=== PATIENT | female | born 1995 | race African-American/Black ===

== ENCOUNTER 2017-03-19 21:20 | Emergency (ER) | payer OTHER ==
[~2017-03-19] VITALS: Ht 152.4 cm; Wt 50.0 kg
[~2017-03-19 21:20] MED LIST: FOLIC ACID; KEPPRA
[2017-03-20 01:55] VITALS: BP 115/71
== END 2017-03-20 02:03 | disposition home or self-care (01) ==
LOC: EMS 21:22
DX: F32.9 Major depressive disorder, single episode, unspecified (principal); R46.89 Other symptoms and signs involving appearance and behavior; F15.10 Other stimulant abuse, uncomplicated; F17.210 Nicotine dependence, cigarettes, uncomplicated; Z88.1 Allergy status to other antibiotic agents
CPT/HCPCS: 99284; 99406

== ENCOUNTER 2018-12-07 19:17 | Emergency (ER) | payer OTHER ==
[~2018-12-07] VITALS: Ht 152.4 cm; Wt 50.9 kg
[2018-12-07 19:32] VITALS: BP 123/72
[2018-12-07 20:26] LABS: BASOPHILS % (AUTO) 0.7 % (0.0-2.0); EOSINOPHILS % (AUTO) 0.9 % (1.0-6.0); HEMATOCRIT 37.6 % (36-46); HEMOGLOBIN 12.7 g/dL (12.0-16.0); LYMPHOCYTES % (AUTO) 35.6 % (22.0-44.0); MEAN CORPUSCULAR HEMOGLOBIN 28.9 pg (26.0-34.0); MEAN CORPUSCULAR HGB CONC 33.8 G/dL (31.0-37.0); MEAN CORPUSCULAR VOLUME 86 fL (80-100); MONOCYTES # (AUTO) 0.5 K/uL (0.1-1.0); MONOCYTES % (AUTO) 8.7 % (2.0-9.0); NEUTROPHILS # (AUTO) 3.1 K/uL (1.8-7.7); NEUTROPHILS % (AUTO) 54.1 % (40.0-70.0); PLATELET COUNT (AUTO) 279 K/uL (150-450); RED BLOOD CELL COUNT(AUTO) 4.39 MIL/uL (4.00-5.20); RED CELL DISTRIBUTION WIDTH 12.6 % (11.5-14.5)
== END 2018-12-07 21:40 | disposition home or self-care (01) ==
LOC: EMS 19:18
DX: N93.9 Abnormal uterine and vaginal bleeding, unspecified (principal); F15.10 Other stimulant abuse, uncomplicated; F17.210 Nicotine dependence, cigarettes, uncomplicated; Z88.0 Allergy status to penicillin
CPT/HCPCS: 99406

== ENCOUNTER 2020-01-14 03:23 | Emergency (ER) | payer OTHER ==
[~2020-01-14] VITALS: Ht 152.4 cm; Wt 50.0 kg
[2020-01-14] MEDS ORDERED: LORazepam 2 MG/ML VIAL IVP ONE (04:15)
[2020-01-14] MEDS ORDERED: SODIUM CHLORIDE 0.9% 1,000 ML IV ONE (04:15)
[2020-01-14] MEDS ORDERED: LORazepam 2 MG TABLET PO ONE (04:45)
[2020-01-14 06:04] VITALS: BP 107/68
[2020-01-14 06:09] LABS: BASOPHILS % (AUTO) 1.1 % (0.0-2.0); EOSINOPHILS % (AUTO) 1.2 % (1.0-6.0); HEMATOCRIT 36.9 % (36-46); HEMOGLOBIN 12.3 g/dL (12.0-16.0); LYMPHOCYTES # (AUTO) 1.6 K/uL (1.0-4.8); LYMPHOCYTES % (AUTO) 27.5 % (22.0-44.0); MEAN CORPUSCULAR HEMOGLOBIN 28.3 pg (26.0-34.0); MEAN CORPUSCULAR HGB CONC 33.4 G/dL (31.0-37.0); MEAN CORPUSCULAR VOLUME 85 fL (80-100); MONOCYTES # (AUTO) 0.5 K/uL (0.1-1.0); MONOCYTES % (AUTO) 8.9 % (2.0-9.0); NEUTROPHILS # (AUTO) 3.5 K/uL (1.8-7.7); NEUTROPHILS % (AUTO) 61.3 % (40.0-70.0); PLATELET COUNT (AUTO) 315 K/uL (150-450); RED BLOOD CELL COUNT(AUTO) 4.36 MIL/uL (4.00-5.20); RED CELL DISTRIBUTION WIDTH 14.5 % (11.5-14.5)
[2020-01-14 06:14] LABS: ANION GAP 11 mmol/L (8-16); CALCIUM, TOTAL 9.2 mg/dL (8.8-10.5); CARBON DIOXIDE 23 mmol/L (22-29); CHLORIDE 100 mmol/L (98-107); CREATININE 0.85 mg/dL (0.60-1.30); GLOMERULAR FILTR. RATE CALC > 60 mL/min (>60); GLUCOSE,RANDOM 83 mg/dL (70-110); POTASSIUM 3.5 mmol/L (3.5-5.1); SODIUM SERUM 134 mmol/L (136-145); UREA NITROGEN, BLOOD 7 mg/dL (7-18)
[2020-01-14 06:25] LABS: ALANINE AMINOTRANSFERASE 22 U/L (12-78); ALBUMIN 3.7 g/dL (3.4-5.0); ALKALINE PHOSPHATASE 92 U/L (46-116); ASPARTATE AMINOTRANSFERASE 25 U/L (15-37); BILIRUBIN,TOTAL 0.9 mg/dL (0.1-1.0); HCG,QUANTITATIVE < 1 mIU/mL (0-6); TOTAL PROTEIN, SERUM 7.7 g/dL (6.4-8.2)
== END 2020-01-14 06:40 | disposition home or self-care (01) ==
LOC: EMS 03:23
DX: N93.9 Abnormal uterine and vaginal bleeding, unspecified (principal); R45.1 Restlessness and agitation; F17.210 Nicotine dependence, cigarettes, uncomplicated; F19.90 Other psychoactive substance use, unspecified, uncomplicated; Z01.419 Encounter for gynecological examination (general) (routine) without abnormal findings; Z88.1 Allergy status to other antibiotic agents
CPT/HCPCS: 36415; 80053; 84702; 85025; 99283; G0480

== ENCOUNTER 2020-04-17 21:02 | Inpatient (IN) | payer MEDICAID ==
[~2020-04-17] VITALS: Ht 152.4 cm; Wt 52.7 kg
[2020-04-17] MEDS ORDERED: HALOPERIDOL 5 MG TABLET PO PRN (23:45)
[2020-04-17] MEDS ORDERED: ZOLPIDEM TARTRATE 10 MG TABLET PO PRN (23:45)
[2020-04-18 00:47] VITALS: BP 105/70
[2020-04-18] MEDS ORDERED: ACETAMINOPHEN 325 MG TABLET PO PRN (08:00)
[2020-04-18] MEDS ORDERED: IBUPROFEN 400 MG TABLET PO PRN (08:00)
[2020-04-18] MEDS ORDERED: CloNIDine HCL 0.1 MG TABLET PO PRN (08:00)
[2020-04-18] MEDS ORDERED: ALBUTEROL SULFATE HFA 90 MCG/PUFF 8 GM INHALER IH PRN (08:00)
[2020-04-18] MEDS ORDERED: GuaiFENesin/D-METHORPHAN [SUGAR-FREE] 200-20MG/10 ML SYRUP UDCUP PO PRN (08:00)
[2020-04-18] MEDS ORDERED: PETROLATUM,WHITE 28 GM JELLY TP PRN (08:00)
[2020-04-18] MEDS ORDERED: LOPERAMIDE HCL 2 MG CAPSULE PO PRN (08:00)
[2020-04-18] MEDS ORDERED: MAGNESIUM HYDROXIDE SUSPENSION 30 ML UDCUP PO PRN (08:00)
[2020-04-18] MEDS ORDERED: ONDANSETRON HCL 4 MG TABLET PO PRN (08:00)
[2020-04-18] MEDS ORDERED: MAG HYDROX/AL HYDROX/SIMETH ES 30 ML SUSPENSION UDCUP PO PRN (08:00)
[2020-04-18] MEDS ORDERED: DOCUSATE SODIUM 100 MG CAPSULE PO PRN (08:00)
[2020-04-18 08:26] LABS: HEMOGLOBIN A1C 5.2 % (3.8-5.6)
[2020-04-18 08:30] VITALS: BP 122/79
[2020-04-18 08:33] LABS: CHOL/HDL RATIO 2.5 (3.9-5.7); CHOLESTEROL 137 mg/dL (131-200); FREE T4 (FREE THYROXINE) 1.05 ng/dL (0.76-1.46); HCG,QUANTITATIVE < 1 mIU/mL (0-6); HDL CHOLESTEROL 55 mg/dL (40-60); LDL CHOL (CALC.) 70 mg/dL (0-130); THYROID STIMULATING HORMONE 0.34 uIU/mL (0.36-3.74); TRIGLYCERIDES 60 mg/dL (15-150)
[2020-04-18] MEDS: SERTRALINE HCL 50 MG TABLET PO SCH (10:35)
[2020-04-18] MEDS: CIPROFLOXACIN HCL 500 MG TABLET PO SCH (16:16)
[2020-04-18 16:54] VITALS: BP 109/64
[2020-04-18] MEDS: RisperiDONE 1 MG TABLET PO SCH (20:12)
[2020-04-19 05:42] VITALS: BP 105/53
[2020-04-19 08:24] VITALS: BP 101/65
[2020-04-19] MEDS: SERTRALINE HCL 50 MG TABLET PO SCH (09:34)
[2020-04-19] MEDS: CIPROFLOXACIN HCL 500 MG TABLET PO SCH ×2 (09:34→16:45)
[2020-04-19] MEDS: LORazepam 1 MG TABLET PO PRN (16:05)
[2020-04-19] MEDS: NICOTINE 14 MG/24 HOUR PATCH TD PRN (16:46)
[2020-04-19 17:06] VITALS: BP 104/63
[2020-04-19] MEDS: RisperiDONE 1 MG TABLET PO SCH (20:21)
[2020-04-20] VITALS: BP 90/52
[2020-04-20] MEDS: SERTRALINE HCL 50 MG TABLET PO SCH (08:22)
[2020-04-20] MEDS: CIPROFLOXACIN HCL 500 MG TABLET PO SCH ×2 (08:22→16:05)
[2020-04-20 08:28] VITALS: BP 90/55
[2020-04-20] MEDS: LORazepam 1 MG TABLET PO PRN (16:09)
[2020-04-20 16:10] VITALS: BP 104/63
[2020-04-20] MEDS: NICOTINE 14 MG/24 HOUR PATCH TD PRN (16:54)
[2020-04-20] MEDS: RisperiDONE 1 MG TABLET PO SCH (20:22)
[2020-04-21 02:33] VITALS: BP 101/67
[2020-04-21] MEDS: SERTRALINE HCL 50 MG TABLET PO SCH (08:10)
[2020-04-21] MEDS: NICOTINE 14 MG/24 HOUR PATCH TD PRN (08:10)
[2020-04-21] MEDS: CIPROFLOXACIN HCL 500 MG TABLET PO SCH (08:10)
[2020-04-21 08:11] VITALS: BP 114/62
[2020-04-21] MEDS ORDERED: SERT50TA12 PO (12:17)
[2020-04-21] MEDS ORDERED: RISP1TAB27 PO (12:17)
[2020-04-21] MEDS ORDERED: CIPR250T6 PO (12:20)
== END 2020-04-21 13:45 | disposition home or self-care (01) | DRG 751 ==
LOC: B3A 23:30
DX: F33.3 Major depressive disorder, recurrent, severe with psychotic symptoms (principal); G40.909 Epilepsy, unspecified, not intractable, without status epilepticus; R45.851 Suicidal ideations; F12.10 Cannabis abuse, uncomplicated; F15.10 Other stimulant abuse, uncomplicated; N39.0 Urinary tract infection, site not specified; Z59.0 Homelessness; Z79.899 Other long term (current) drug therapy; Z91.5 Personal history of self-harm; Z88.0 Allergy status to penicillin
CPT/HCPCS: 83036; 84439; 84443

== ENCOUNTER 2025-08-02 03:36 | Emergency (ER) | payer MEDICAID, OTHER ==
[~2025-08-02] VITALS: Ht 160 cm; Wt 59.1 kg
[~2025-08-02 03:36] MED LIST changes: +CIPR250T6 PO; -FOLIC ACID; -KEPPRA; +RISP1TAB48 PO; +SERT-158 PO
[2025-08-02 03:38] VITALS: BP 82/58; PULSE 105; RESP 18; TEMP 97.9; O2SAT 100
[2025-08-02 04:17] LABS: PLATELET COUNT (AUTO) 354 K/uL (150-450); RED BLOOD CELL COUNT(AUTO) 4.27 MIL/uL (4.00-5.20); RED CELL DISTRIBUTION WIDTH 13.1 % (11.5-14.5); WHITE BLOOD COUNT (AUTO) 8.1 K/uL (4.5-11.0)
[2025-08-02 04:18] LABS: COVID AG,FIA SOURCE NASAL SWAB
[2025-08-02 04:24] LABS: SARS-COV2 (COVID) ANTIGEN,FIA Negative (Negative)
[2025-08-02 04:27] LABS: CALCIUM, TOTAL 8.8 mg/dL (8.8-10.5); CREATININE 0.85 mg/dL (0.60-1.30); GLOMERULAR FILTR. RATE CALC > 60 mL/min (>60); GLUCOSE,RANDOM 93 mg/dL (70-110); SODIUM SERUM 139 mmol/L (136-145); UREA NITROGEN, BLOOD 9 mg/dL (7-18)
== END 2025-08-02 07:25 | disposition home or self-care (01) ==
LOC: EMS 03:43 → CANBEDREQ 06:56 → EMS 07:25
DX: F32.A Depression, unspecified (principal); R45.851 Suicidal ideations; F17.210 Nicotine dependence, cigarettes, uncomplicated; F15.90 Other stimulant use, unspecified, uncomplicated; Z79.899 Other long term (current) drug therapy; Z88.0 Allergy status to penicillin; Z20.822 Contact with and (suspected) exposure to COVID-19
CPT/HCPCS: 99284; 71045; 87426; 80048; 84703; 85025; 36415; G0480; 51702